=== PATIENT | male | born 1965 | race Caucasian/White ===

== ENCOUNTER 2018-06-15 06:42 | Emergency (ER) | payer MEDICAID ==
[~2018-06-15] VITALS: Ht 170.2 cm; Wt 95.7 kg
[2018-06-15 06:52] VITALS: Ht 170.2 cm; Wt 95.7 kg
[2018-06-15 09:16] VITALS: BP 138/74
== END 2018-06-15 08:50 | disposition home or self-care (01) ==
LOC: ED 06:42
DX: S82.491A Other fracture of shaft of right fibula, initial encounter for closed fracture (principal); Z98.890 Other specified postprocedural states; W01.0XXA Fall on same level from slipping, tripping and stumbling without subsequent striking against object, initial encounter; Y93.89 Activity, other specified; Y92.89 Other specified places as the place of occurrence of the external cause; Y99.8 Other external cause status
CPT/HCPCS: J1885; J2270; Q0092; Q0162